=== PATIENT | female | born 1990 ===

== ENCOUNTER 2022-10-01 15:30 | Day surgery (SDC) | payer BC ==
[~2022-10-01 15:30] MED LIST: Lactated Ringers 1,000 ML IV SCH; Lidocaine 1% with EPINEPHrine 1:100,000 20 ML MDV ONE; Lidocaine 1%/Sod Bicarbonate in NS 8.4% 1 ML Syringe IDERM PRN; Ondansetron 4 MG/2 ML SDV IVPUSH PRN; Sodium Chloride 0.9% 10 ML Syringe FLUSH PRN
[2022-10-01] MEDS: Tetracaine HCl/PF 0.5% 4 ML Bottle EYEBOTH SCH ×5 (15:44→16:07)
[2022-10-01] MEDS: Erythromycin Base 0.5% Ophth Oint 1 GM Tube ONE ×2 (15:45→16:19)
[2022-10-01] MEDS ORDERED: Midazolam 1 MG/ML 2 ML SDV ONE ×2 (16:04→16:07)
[2022-10-01] MEDS ORDERED: Sodium Chloride 0.9% 10 ML Syringe FLUSH SCH (21:00)
== END 2022-10-01 16:43 ==
LOC: JD.SDS 15:30
PROVIDERS: ATTEND Ophthalmology
DX: D31.02 Benign neoplasm of left conjunctiva (principal); H04.552 Acquired stenosis of left nasolacrimal duct; H11.822 Conjunctivochalasis, left eye; H40.003 Preglaucoma, unspecified, bilateral; H16.103 Unspecified superficial keratitis, bilateral; H04.562 Stenosis of left lacrimal punctum; H04.202 Unspecified epiphora, left side; F32.A Depression, unspecified; Z87.891 Personal history of nicotine dependence; Z79.899 Other long term (current) drug therapy
CPT/HCPCS: 68115; A9270; J2250; J7120; J3490